=== PATIENT | male | born 2000 | race Caucasian/White ===

== ENCOUNTER 2024-03-14 12:21 | Emergency (ER) | payer SELFPAY ==
[2024-03-14 12:28] VITALS: BP 120/75; PULSE 71; TEMP 36.8; O2SAT 96; BMI 18.5
--- NOTE | 2024-03-14 12:32 | XR_ITS ---
[address] [address] Patient Name: VIRGIL LUTZ MRN: [id number] date: 2000 Sex: M Assigned Patient Location: ER Current Patient Location: ED.MAIN Accession/Order Number: [id number] Exam Date: 03/14/2024 12:34 Report Date: 03/14/2024 13:03 At the request of: OSVALDO GLORIA Procedure: XR wrist LT min 3V PROCEDURE: XR wrist LT min 3V, XR hand LT min 3V COMPARISON: None. HISTORY: injury c/o pain FINDINGS: BONES:Subtle contour deformity along the scaphoid best seen on wrist image #4. A transverse nondisplaced fracture is suspected. No additional fracture or dislocation SOFT TISSUES:Moderate wrist soft tissue swelling EFFUSION:None visible. OTHER: Negative. XR/XR wrist LT min 3V IMPRESSION: Suspected nondisplaced transverse fracture of the scaphoid Electronically authenticated by: SERGEY DOMINIQUE Date: 03/14/2024 13:03
--- NOTE | 2024-03-14 12:40 | XR_ITS ---
The [address] [address] Patient Name: VIRGIL LUTZ MRN: [id number] date: 2000 Sex: M Assigned Patient Location: ER Current Patient Location: ED.MAIN Accession/Order Number: [id number] Exam Date: 03/14/2024 12:34 Report Date: 03/14/2024 13:03 At the request of: OSVALDO GLORIA Procedure: XR hand LT min 3V PROCEDURE: XR wrist LT min 3V, XR hand LT min 3V COMPARISON: None. HISTORY: injury c/o pain FINDINGS: BONES:Subtle contour deformity along the scaphoid best seen on wrist image #4. A transverse nondisplaced fracture is suspected. No additional fracture or dislocation SOFT TISSUES:Moderate wrist soft tissue swelling EFFUSION:None visible. OTHER: Negative. XR/XR hand LT min 3V IMPRESSION: Suspected nondisplaced transverse fracture of the scaphoid Electronically authenticated by: SERGEY DOMINIQUE Date: 03/14/2024 13:03
--- NOTE | 2024-03-14 13:34 | ED.UPPEXIN1 ---
HPI HPI - Extremity Injury (Upper) General Chief Complaint: Extremity Injury, Upper Stated Complaint: EXTRIMTY INJURY UPPER/ LEFT ARM Time Seen by Provider: 03/14/24 13:14 Source: patient Mode of arrival: walk-in Limitations: no limitations History of Present Illness HPI narrative: 23 year old male presents to the ED for pain to his left lateral wrist and hand s/p trip and fall today. He tripped over rocks and landed with his left arm outstretched. Denies injury to other areas. Denies N/T, weakness to his extremity. Denies pain to his elbow, shoulder, neck, back. Related Data Previous Rx's ?Medication ?Instructions ?Recorded ibuprofen 800 mg tablet 800 mg PO Q8H PRN pain #12 tabs 03/14/24 Allergies Allergy/AdvReac Type Severity Reaction Status Date / Time No Known Drug Allergies Allergy Verified 03/14/24 12:31 Opioid HPI Opioid Management Most Recent Pain and Opioid Data: Last Pain Scale 7 03/14/24 12:28 Review of Systems ROS Constitutional Denies: fever or chills Cardiovascular Denies: chest pain Respiratory Denies: shortness of breath Gastrointestinal Denies: abdominal pain Musculoskeletal Reports: extremity pain; Denies: back pain, neck pain or muscle weakness Neurological Denies: headache, numbness in extremities, weakness in extremities or dizziness Exam Constitutional Vital Signs, click to edit/add: Last Vital Signs Temp 98.2 F 03/14/24 12:28 Pulse 71 03/14/24 12:28 Resp 20 03/14/24 12:28 BP 120/75 03/14/24 12:28 Pulse Ox 96 03/14/24 12:28 O2 Del Method Room Air 03/14/24 12:28 Common normals: no apparent distress and oriented x3 General appearance: cooperative HENDC Common normals: normocephalic and head/scalp atraumatic Eye Common normals: conjunctivae normal and no scleral icterus Neck & C-Spine Common normals: supple Chest Chest: symmetrical chest wall rise Respiratory Common normals: normal respiratory effort Effort & inspection: able to speak in complete sentences and symmetric chest movement Cardio Common normals: regular rate Peripheral pulses: radial pulses present and ulnar pulses present Extremity Common normals: normal capillary refill Left upper extremity: hand and digits Left hand and digits: inspection (No swelling or obvious deformity noted. ), palpation (Tenderness to base of left thumb and left lateral wrist.), ROM (Mildly decreased ROM to left thumb due to pain. ) and neurovascular exam (Distal sensation intact. ) Neuro Common normals: oriented x3 and CN's II-XII intact bilaterally Sensorium/orientation: awake and alert Speech: speech normal Gait (neuro): normal gait Course Vital Signs Vital signs: Vital Signs Temperature 98.2 F 03/14/24 12:28 Pulse Rate 71 03/14/24 12:28 Respiratory Rate 20 03/14/24 12:28 Blood Pressure 120/75 03/14/24 12:28 Pulse Oximetry 96 03/14/24 12:28 Oxygen Delivery Method Room Air 03/14/24 12:28 Temperature 98.2 F 03/14/24 12:28 Pulse Rate 71 03/14/24 12:28 Respiratory Rate 20 03/14/24 12:28 Blood Pressure 120/75 03/14/24 12:28 Pulse Oximetry 96 03/14/24 12:28 Oxygen Delivery Method Room Air 03/14/24 12:28 MDM - Extremity Injury (Upper) MDM Narrative Medical decision making narrative: X-ray showed a suspected nondisplaced transverse fracture of the scaphoid. A thumb spica splint was applied by myself. A sling was applied by the RN. The applications were checked; the LUE remained NVI. He was setup for follow up with Dr. Marquez at noon on 03/19/24. A prescription was provided for Motrin. Follow up with the orthopedist as scheduled. Return precautions were discussed. Differential Diagnosis Differential diagnosis: Likely sprain and strain of wrist, fracture of wrist and fracture of hand Medical Records Attestation: I reviewed the patient's medical records. Imaging Data X-ray left wrist/hand: Attestation: I have reviewed the pertinent imaging results. Radiologist's impression: ITS Impressions Wrist X-Ray 03/14/24 12:32 IMPRESSION: Suspected nondisplaced transverse fracture of the scaphoid Electronically authenticated by: SERGEY DOMINIQUE Date: 03/14/2024 13:03 Hand X-Ray 03/14/24 12:40 IMPRESSION: Suspected nondisplaced transverse fracture of the scaphoid Electronically authenticated by: SERGEY DOMINIQUE Date: 03/14/2024 13:03 Discharge Plan Discharge Stand Alone Forms: Portal Instructions Chief Complaint: Extremity Injury, Upper Clinical Impression: Fracture of scaphoid bone of left wrist Patient Disposition: Home, Self-Care Time of Disposition Decision: 13:42 Condition: Good Mode of Transportation: Private Vehicle Prescriptions / Home Meds: New ibuprofen 800 mg tablet 800 mg PO Q8H PRN (Reason: pain) Qty: 12 0RF Print Language: Amharic Instructions: Wrist Fracture in Adults (ED) Referrals: Physician,Non-Staff, [Primary Care Provider] - 1 week Ankur Marquez MD [Physician] - 03/19/24 12:00 pm () Discharge Date/Time: 03/14/24 13:55
[2024-03-14] MEDS: IBUPROFEN 600 MG TABLET PO (13:42)
[2024-03-14] MEDS: ACETAMINOPHEN 500 MG TABLET 1000 MG PO (13:43)
== END 2024-03-14 13:55 | disposition home or self-care (01) ==
PROVIDERS: Emergency Provider Emergency Medicine
DX: S62.002A Unspecified fracture of navicular [scaphoid] bone of left wrist, initial encounter for closed fracture (principal); W01.10XA Fall on same level from slipping, tripping and stumbling with subsequent striking against unspecified object, initial encounter
CPT/HCPCS: 73110; 73130; 99283

== ENCOUNTER 2024-03-26 12:39 | Outpatient (OUT) | payer SELFPAY ==
--- NOTE | 2024-03-26 | XR_ITS ---
The [address] [address] Patient Name: JOE LUTZ MRN: [id number] date: 2000 Sex: M Assigned Patient Location: Current Patient Location: Accession/Order Number: [id number] Exam Date: 03/26/2024 12:47 Report Date: 03/27/2024 08:27 At the request of: MELVA STOCK Procedure: XR wrist LT min 3V PROCEDURE: XR wrist LT min 3V HISTORY: LEFT WRIST PAIN COMPARISON: XR left hand and wrist 03/14/2024 FINDINGS: BONES:Stable, normal alignment of scaphoid fracture slightly increased trabecular density suggesting early bone healing. SOFT TISSUES:Images were obtained to cast material which limits evaluation. EFFUSION:None visible. OTHER: Negative. XR/XR wrist LT min 3V IMPRESSION: 1. Stable nondisplaced scaphoid fracture. Electronically authenticated by: MELVA BARNEY Date: 03/27/2024 08:27
--- OUTSIDE RECORDS SUMMARY | 2024-03-26 12:58 | XMS_ITS | CCD ---
Author Organization [facility] InformFormerly [facility] Care Team Providers [employer] Name Role Phone MAYLIN VALVERDE Consulting Unavailable MAYLIN VALVERDE Admitting Unavailable MAYLIN VALVERDE Attending Unavailable REQUEST, NONE LISTED Primary Care Unavailable SERGEY DOMINIQUE V Consulting Unavailable Nurse, Nurse Attending Unavailable Nurse, Nurse Referring Unavailable Problems Active Problems Problem Classification Problem Date Documented Da te Episodic/Chronic External cause codes: Fall (1 source) Fall on same level, unspecified, initial encounter; Translations: [FALL SAME LEVEL UNSPECIFIED INITIAL] Onset: 04-11-2018 External cause codes: Unspecified (1 source) Activity, basketball; Translations: [ACTIVITY BASKETBALL] Onset: 04-11-2018 Past or Other Problems Problem Classification Problem Date Documented Da te Episodic/Chronic Fracture of upper limb (1 source) Salter-Edwards Type II physeal fracture of lower end of radius, left arm, initial encounter for closed fracture; Translations: [SLTR-DAVID II FX LW RAD LT INIT NICOLASA] Onset: 04-11-2018 Episodic Other non-traumatic joint disorders (3 sources) Pain in left wrist; Translations: [PAIN IN LEFT WRIST] Onset: 04-07-2018 Episodic Encounters Encounter Date Encounter Type Care Provider Facility Start: 01-04-2023 ambulatory Nurse Nurse [facility] Start: 04-07-2018 End: 04-08-2018 Patient encounter procedure MAYLIN VALVERDE Facility:[facility] Payers Date Payer Category Payer Unknown [id number] 1957 Unknown [id number] Summary Purpose Family History No Family History Records FoundNo Family History Records Found Advance Directives No Advanced Directives Records FoundNo Advanced Directives Records Found Additional Source Comments (unrecognized sect ion and content) No Status Records FoundNo Status Records Found INFORMATION SOURCE (unrecogn ized section and content) DATE CREATED AUTHOR 08/12/2019 [facility] DATE CREATED AUTHOR AUTHOR'S ORGANJATIN ATION 01/06/2023 [place] FOR RECORDS PERTAINING TO PATIENTS WHO ARE OR HAVE BEEN ENROLLED IN A CHEMICAL DEPENDENCY/SUBSTANCEABUSE PROGRAM, SOME INFORMATION MAY BE OMITTED. This clinical summary was aggregated from multiple sources. Caution should be exercised in using it in the provision of clinical care. This summary normalizes information from multiple sources, and as a consequence, information in this document may materially change the coding, format and clinical context of patient data. In addition, data may be omitted in some cases. CLINICAL DECISIONS SHOULD BE BASED ON THE PRIMARY CLINICAL RECORDS. [facility] [employer] [facility]. provides no warranty or guarantee of the accuracy or completeness of information in this document.
== END 2024-03-26 12:40 | disposition home or self-care (01) ==
LOC: EC 12:39
PROVIDERS: Visit Provider Orthopaedic Surgery
DX: S62.002D Unspecified fracture of navicular [scaphoid] bone of left wrist, subsequent encounter for fracture with routine healing (principal)
CPT/HCPCS: 73110

== ENCOUNTER 2024-04-23 09:49 | Outpatient (OUT) | payer SELFPAY ==
--- NOTE | 2024-04-23 | XR_ITS ---
The [address] [address] Patient Name: JOE LUTZ MRN: [id number] date: 2000 Sex: M Assigned Patient Location: Current Patient Location: Accession/Order Number: [id number] Exam Date: 04/23/2024 09:51 Report Date: 04/23/2024 17:29 At the request of: MELVA STOCK Procedure: XR wrist RT min 3V EXAM: XR wrist RT min 3V HISTORY: RIGHT WRIST PAIN COMPARISON: 03/26/2024, 03/14/2024 TECHNIQUE: 3 views of the left wrist are performed. FINDINGS: Similar is subtle irregularity along the distal radial aspect of the scaphoid. No acute abnormality is seen. No evidence for avascular necrosis. Joint spaces are maintained. Unremarkable soft tissues. XR/XR wrist RT min 3V IMPRESSION: No significant change to the appearance of the suspected fracture along the distal pole of the scaphoid. Electronically authenticated by: JOY DICKENS Date: 04/23/2024 17:29
== END 2024-04-23 09:50 | disposition home or self-care (01) ==
LOC: EC 09:49
PROVIDERS: Visit Provider Orthopaedic Surgery
DX: S62.002D Unspecified fracture of navicular [scaphoid] bone of left wrist, subsequent encounter for fracture with routine healing (principal)
CPT/HCPCS: 73110

== ENCOUNTER 2024-05-21 09:18 | Outpatient (OUT) | payer SELFPAY ==
--- NOTE | 2024-05-21 | XR_ITS ---
The [address] [address] Patient Name: JOE LUTZ MRN: [id number] date: 2000 Sex: M Assigned Patient Location: Current Patient Location: Accession/Order Number: [id number] Exam Date: 05/21/2024 09:42 Report Date: 05/21/2024 12:43 At the request of: MELVA STOCK Procedure: XR wrist LT 2V PROCEDURE: XR wrist LT 2V COMPARISON: 03/26/2024 HISTORY: LEFT WRIST PAIN FINDINGS: BONES:Previously noted scaphoid fracture is not definitively seen on the current exam. No new fracture or dislocation SOFT TISSUES:Negative. No visible soft tissue swelling. EFFUSION:None visible. OTHER: Negative. XR/XR wrist LT 2V IMPRESSION: No radiographic abnormality Electronically authenticated by: SERGEY DOMINIQUE Date: 05/21/2024 12:43
== END 2024-05-21 09:19 | disposition home or self-care (01) ==
LOC: EC 09:18
PROVIDERS: Visit Provider Orthopaedic Surgery
DX: S62.002D Unspecified fracture of navicular [scaphoid] bone of left wrist, subsequent encounter for fracture with routine healing (principal)
CPT/HCPCS: 73100